=== PATIENT | male | born 1975 | race Two or more races ===

== ENCOUNTER 2023-04-03 21:05 | Emergency (ER) | payer MEDICAID, OTHER ==
[~2023-04-03] VITALS: Ht 172.7 cm; Wt 68.4 kg
[2023-04-03] MEDS ORDERED: ONDANSETRON ODT 4 MG TAB PO ONE (22:00)
[2023-04-03 22:33] LABS: Basophils # (auto) 0.1 10 ^3/uL (0-0.2); Eosinophils # (auto) 0.1 10 ^3/uL (0-0.8); Eosinophils % (auto) 2.3 % (0.0-7.0); Hematocrit 38.3 % (41.0-53.0); Hemoglobin 12.8 g/dL (13.5-17.5); Lymphocytes % (auto) 48.1 % (10.0-50.0); Mean Corpuscular Hemoglobin 27.6 pg (28.0-32.0); Mean Corpuscular Hgb Conc. 33.5 g/dL (32.0-36.0); Mean Corpuscular Volume 82.4 fL (80.0-100.0); Monocytes # (auto) 0.4 10 ^3/uL (0-1.3); Monocytes % (auto) 9.3 % (0.0-12.0); Neutrophils # (auto) 1.6 10 ^3/uL (1.6-8.6); Neutrophils % (auto) 37.3 % (37.0-80.0); Nucleated Red Blood Cells % 0.1 %; Red Blood Cells 4.65 10^6/uL (4.5-5.90); Red Cell Distribution Width 16.4 % (11.8-14.3); White Blood Cell 4.2 10^3/uL (4.4-10.8)
[2023-04-03 22:50] LABS: Albumin 3.7 g/dL (3.4-5.0); Calcium 7.9 mg/dL (8.5-10.1); Potassium 3.6 mmol/L (3.5-5.1); Salicylate < 1.7 mg/dL (2.8-20.0)
[2023-04-03 22:53] LABS: BUN/Creatinine Ratio 11.5 (10.0-20.0)
[2023-04-03 22:54] LABS: Bilirubin, Total 0.9 mg/dL (0.2-1.0); Total Protein 7.3 g/dL (6.4-8.2)
[2023-04-03 22:58] LABS: Acetaminophen < 2.0 ug/mL (10-30)
[2023-04-03] MEDS ORDERED: LORazepam 2MG/ML-1ML VIAL IM ONE (23:00)
[2023-04-03] MEDS ORDERED: SOD CHL 0.45% 1,000 ML IV ONE (23:00)
[2023-04-03 23:58] LABS: Urine WBC None Seen /hpf (0 - 3)
[2023-04-04 00:05] LABS: Urine Bacteria NONE SEEN /hpf (None Seen); Urine Blood Negative /uL (Negative); Urine Specific Gravity 1.016 (1.001-1.035)
[2023-04-04 00:19] LABS: Amphetamine Screen, Urine NEGATIVE (NEGATIVE); Barbiturate Scree,Urine NEGATIVE (NEGATIVE); Benzodiazephine Screen, Urine NEGATIVE (NEGATIVE); Cannabinoid Screen, Urine NEGATIVE (NEGATIVE); Cocaine Screen, Urine NEGATIVE (NEGATIVE); Opiate Scree,Urine NEGATIVE (NEGATIVE); Phencyclidine Screen, Urine NEGATIVE (NEGATIVE)
[2023-04-04] MEDS ORDERED: LORazepam 0.5 MG TAB PO ONE ×2 (01:30→02:30)
[2023-04-04] MEDS ORDERED: ACETAMINOPHEN 325 MG TAB PO ONE (12:00)
[2023-04-04] MEDS ORDERED: ONDANSETRON ODT 4 MG TAB PO ONE (12:00)
[2023-04-04] MEDS: LORazepam 0.5 MG TAB PO PRN ×2 (14:48→19:30)
[2023-04-04] MEDS: OLANZapine 5 MG TAB PO SCH (21:50)
[2023-04-05] MEDS ORDERED: ONDANSETRON ODT 4 MG TAB PO ONE (08:30)
[2023-04-05] MEDS ORDERED: ACETAMINOPHEN 325 MG TAB PO ONE ×2 (08:30→23:30)
[2023-04-05] MEDS: OLANZapine 5 MG TAB PO SCH ×2 (08:58→22:45)
[2023-04-05] MEDS: LORazepam 0.5 MG TAB PO PRN (08:58)
[2023-04-06] MEDS: OLANZapine 5 MG TAB PO SCH ×2 (10:32→22:12)
[2023-04-06] MEDS: LORazepam 0.5 MG TAB PO PRN ×2 (11:13→22:12)
[2023-04-07] MEDS: LORazepam 0.5 MG TAB PO PRN (15:07)
[2023-04-07] MEDS: OLANZapine 5 MG TAB PO SCH ×2 (16:36→22:23)
[2023-04-08] MEDS: OLANZapine 5 MG TAB PO SCH (08:14)
[2023-04-08] MEDS: LORazepam 0.5 MG TAB PO PRN (08:17)
[2023-04-08 09:50] VITALS: BP 112/61
== END 2023-04-08 09:59 ==
LOC: ER 21:11
DX: T14.90XA Injury, unspecified, initial encounter (principal); F32.9 Major depressive disorder, single episode, unspecified; F20.9 Schizophrenia, unspecified; F17.210 Nicotine dependence, cigarettes, uncomplicated; F15.90 Other stimulant use, unspecified, uncomplicated; Z20.822 Contact with and (suspected) exposure to COVID-19
CPT/HCPCS: 36415; 80053; 80307; 80320; 80329; 81001; 85025; 87426; 96372; 99285; J2060; Q0162